=== PATIENT | female | born 1965 | race Two or more races ===

== ENCOUNTER 2024-03-05 12:02 | Emergency (ER) | payer BC, SELFPAY ==
[2024-03-05 12:04] VITALS: BMI 25.2
[2024-03-05 12:24] VITALS: BP 128/78; PULSE 73; RESP 20; TEMP 36.8; O2SAT 99; BMI 25.4
--- NOTE | 2024-03-05 12:35 | XR_ITS ---
Examination: PA lateral chest 2 views Technique: Upright PA lateral chest 2 views Exam date and time: March 05, 2024 12:56 PM Comparison December 25, 2022 Indications: Upper back and chest pain with coughing beginning 2 days ago. Findings: Normal heart size Moderate hyperexpansion Mild accentuation basilar bronchovascular markings No lobar pneumonia No pulmonary edema Impression: COPD with moderate hyperexpansion Mild bibasilar bronchitis pattern
--- NOTE | 2024-03-05 12:35 | XR_ITS ---
Examination: CT brain head without contrast. 2-D sagittal coronal reconstructions Date and time of exam:March 05, 2024 1459 hrs. Indications: Dizziness beginning one week ago CTDI: vol (mGy):42.7 DLP: (mGycm):843 Technique: Multiple CT axial sections of the brain have been obtained, 5 mm slice thickness. Contrast has not been administered. 2-D sagittal, coronal reconstructions have been obtained Low dose protocols were performed. One or more of the following dose reduction techniques were used; automated exposure control, adjustment of the mA and/or KV according to patient size, use of iterative reconstruction technique. Findings: No significant ventricular enlargement. Intra-axial or extra-axial hemorrhage density is not seen. No mass effect or midline shift Basal cisterns are not remarkable. Fourth ventricle is midline. Cranial vault intact. Impression: Negative for acute hemorrhage, mass effect or midline shift Advise clinical correlation and follow-up accordingly
--- NOTE | 2024-03-05 12:35 | EKG_ITS ---
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
--- NOTE | 2024-03-05 12:35 | PD.EDRME ---
Rapid Medical Screening Exam RME Arrival date/time: 03/05/24 12:02 58-year-old female presents emergency department today significant sick for approximately 2 weeks patient reports that she had cough, congestion and shortness of breath patient also reports he developed a headache patient has taken a full course of antibiotics and is now on taking her second antibiotic Chief Complaint: Flu Like Symptoms Time Seen by Provider: 03/05/24 12:16 Vital signs: Vital Signs Temperature 98.2 F 03/05/24 12:24 Pulse Rate 73 03/05/24 12:24 Respiratory Rate 20 03/05/24 12:24 Blood Pressure 128/78 03/05/24 12:24 Pulse Oximetry (%) 99 03/05/24 12:24 Oxygen Delivery Method Room Air 03/05/24 12:24
[2024-03-05 13:17] LABS: Collection Type, Urine Clean Catch; Squamous Epithelial Cell,Urine 0 /hpf (0-5)
[2024-03-05 13:26] LABS: Basophils # (Auto) 0.1 Thou/mm3 (0.0-0.2); Basophils % (Auto) 1 % (0-2.5); Eosinophils # (Auto) 0.1 Thou/mm3 (0.0-0.5); Eosinophils % (Auto) 2 % (0-10); Hematocrit 44.6 % (36.0-46.0); Hemoglobin 15.2 g/dL (12.0-16.0); Immature Granulocytes % (Auto) 0 % (0-0); Immature Granulocytes Auto 0.01 Thou/mm3 (0.00-0.00); Lymphocytes % (Auto) 28 % (10-50); Mean Corpuscular HGB Conc 34.1 g/dl (31.0-37.0); Mean Corpuscular Hemoglobin 30.7 pg (25.0-35.0); Mean Corpuscular Volume 90 fL (80-100); Monocytes # (Auto) 0.6 Thou/mm3 (0.0-0.8); Monocytes % (Auto) 8 % (0-12); Neutrophils # (Auto) 4.5 Thou/mm3 (1.8-7.7); Neutrophils % (Auto) 62 % (37-80); Nucleated Red Blood Cell % 0 /100 WBC (0); Platelet Count 234 Thou/mm3 (140-440); RDW Standard Deviation 38.1 fL (36.4-46.3); Red Blood Count 4.95 Miln/mm3 (4.00-5.20); White Blood Count 7.3 Thou/mm3 (3.6-11.0)
--- NOTE | 2024-03-05 13:28 | PD.EDSOB ---
ED SOB =RME/HPI General Chief Complaint: Flu Like Symptoms Stated Complaint: UPPER BACK PAIN /COUGH X 2 DAYS Time Seen by Provider: 03/05/24 12:16 Arrival date/time: 03/05/24 12:02 RME / HPI RME / HPI Narrative: 03/05/24 12:02 58-year-old female presents emergency department today significant sick for approximately 2 weeks patient reports that she had cough, congestion and shortness of breath patient also reports he developed a headache patient has taken a full course of antibiotics and is now on taking her second antibiotic This section includes all my notes and documentations, including HPI, PE, and ED course. Asa Chacon MD HPI: 58-year-old female here to be evaluated with multiple concerns. A couple weeks ago, she was diagnosed and treated for influenza. She still reports subjective fever and cough, especially in the past few days. With headache and dizziness. And on and off and occasional different symptoms which can include pounding and racing heart, sweating, chills, shaking, trouble breathing, chest pain, stomach pain, nausea, numbness and tingling in the hands and feet and face, confusion, hot flashes, and feeling faint. No other complaints. ROS: All negative except as documented in HPI. Physical Exam: General: Alert and oriented. Hacking cough noted. Appears anxious. Eyes: Conjunctivae and lids clear. EOMI. PERRL. ENT: No nasal congestion. Pharynx normal. Tympanic membrane normal bilaterally. Neck: Supple. No carotid bruit. No JVD. Heart: RRR. Lungs: No respiratory distress. Good air movement with bilateral rales. Abdomen: Soft and nontender. Back: No CVA tenderness. Legs: No clubbing, cyanosis, edema. Skin: Warm and dry. Neuro: Alert and oriented X 3. Cranial Nerves II-XII grossly intact. No peripheral motor deficits. I reviewed all diagnostic test results. My interpretation of the EKG is sinus rhythm with no acute ST?T changes. My interpretation of the chest x-ray is infiltrates. My review of the head CT report is no acute findings. Blood tests and urine tests unremarkable. COVID/influenza negative. At this point, diagnoses include pneumonia and anxiety. Treatment here included Zithromax and Xanax and DuoNeb. Significant improvement noted. Recommended a trial of outpatient treatment. Based on my best medical judgment, made decision no further evaluation or treatment indicated at this time. Patient understands and agrees to the discharge instructions customized and printed, see below. Discharge instructions from Dr. Chacon: 1. After extensive evaluation, there is no life-threatening condition.? Such as stroke or brain tumor or heart attack or pneumothorax (collapsed lung). 2. You have pneumonia. Take Zithromax to kill the germs causing the pneumonia. And Xopenex inhaler as needed for cough or shortness of breath, this won't speed your heart. 3. Your symptoms may also be due to underlying stress or anxiety or nerves.? This is fairly common. Take Xanax as needed.? Whether this helps or not will be valuable information to your private doctors. 4. See a private doctor on 03/07/2024 for recheck and further care. Ask for help until you are completely better. To make sure there is no serious underlying heart condition, ask to help you get more tests for your heart that cannot be done here in the ER.? Such as Holter Monitor (cardiac monitoring at home from a day to even a month), heart stress test (on treadmill or with medication), echocardiogram (imaging of your heart structures), heart catherization (checking for blockages in your heart arteries), and a referral to see a Blue Prints Trimmer. 5. Seek immediate medical care with worsening or with any concerns. Asa Chacon MD Related Data Home Medications ?Medication ?Instructions ?Recorded ?Confirmed lorazepam 0.5 mg tablet 0.25 mg PO BID PRN Anxiety 08/16/20 08/07/23 Previous Rx's ?Medication ?Instructions ?Recorded alprazolam 0.5 mg tablet (Xanax) 0.5 mg PO BID PRN anxiety #10 tabs 03/05/24 azithromycin 500 mg tablet 500 mg PO QDAY 3 days #3 tabs 03/05/24 (Zithromax TRI-DWIGHT) levalbuterol tartrate 45 2 inh inhalation Q6H PRN shortness 03/05/24 mcg/actuation aerosol inhaler of breath or wheezing #15 grams (Xopenex HFA) Allergies Allergy/AdvReac Type Severity Reaction Status Date / Time prednisone Allergy Severe Rash Verified 03/05/24 12:07 Course Quality Measures none Orders Category Date Time Status Bedside COVID-19 Antigen Test NOW Care 03/05/24 12:35 Active Bedside Influenza A&B Antigen Test NOW Care 03/05/24 12:35 Completed EKG (ED ONLY) *Do not use* NOW Care 03/05/24 12:[address] head/brain wo con Stat Exams 03/05/24 12:35 Completed EKG (ED Only) Stat Exams 03/05/24 12:35 Draft XR chest 2V Stat Exams 03/05/24 12:35 Completed B-Type Natriuretic Peptide Stat Lab 03/05/24 13:03 Completed CBC Stat Lab 03/05/24 13:03 Completed Comprehensive Metabolic Panel Stat Lab 03/05/24 13:03 Completed Magnesium Stat Lab 03/05/24 13:03 Completed Partial Thromboplastin Time Stat Lab 03/05/24 13:03 Completed Prothrombin Time with INR Stat Lab 03/05/24 13:03 Completed Troponin I Stat Lab 03/05/24 13:03 Completed Urinalysis Stat Lab 03/05/24 13:09 Completed ALPRazoLAM [Xanax] Med 03/05/24 13:38 Discontinued 0.5 mg PO X1 ONE Albuterol/Ipratr Rt Myra [Duoneb Rt Myra] Med 03/05/24 13:29 Discontinued 3 ml INH X1 ONE Azithromycin Po [Zithromax PO] Med 03/05/24 13:29 Discontinued 500 mg PO X1 ONE Vital Signs Vital signs: Vital Signs Temperature 98.2 F 03/05/24 12:24 Pulse Rate 73 03/05/24 12:24 Respiratory Rate 20 03/05/24 12:24 Blood Pressure 128/78 03/05/24 12:24 Pulse Oximetry (%) 99 03/05/24 12:24 Oxygen Delivery Method Room Air 03/05/24 12:24 Shortness of Breath / Dyspnea Patient data External records reviewed:: [facility] previous records Clinical information provided by:: patient Social determinants that could affect healthcare access:: none Patient has the following chronic illnesses:: Asthma How is presenting disease/condition affected by chronic disease/condition?: exacerbated by Evaluation data The following diagnostics were reviewed and interpreted by me:: lab results, radiology exam(s) and EKG tracing(s) (My interpretation of the EKG is: Sinus rhythm (83 bpm) with nonspecific ST-T changes. Asa Chacon MD) Lab and/or radiology exams considered but not ordered:: None Interpretation Summary: Chest x-ray showing pneumonia, other diagnostic tests unremarkable Medications / Prescriptions Medications or Prescriptions considered but not ordered:: None Medication administrations:: Medication Administration History Discontinued Medications Albuterol/Ipratropium (Albuterol/Ipratropium (Duoneb) Rt Myra 3 Ml Nebu) 3 ml INH X1 ONE Stop: 03/05/24 13:30 Last Admin: 03/05/24 14:20 Dose: 3 ml Documented By: [facility] Alprazolam (Alprazolam 0.25 Mg Tablet) 0.5 mg PO X1 ONE Stop: 03/05/24 13:39 Last Admin: 03/05/24 13:42 Dose: 0.5 mg Documented By: Azithromycin (Azithromycin 250 Mg Tablet) 500 mg PO X1 ONE Stop: 03/05/24 13:30 Last Admin: 03/05/24 13:42 Dose: 500 mg Documented By: Zithromax and Xanax and DuoNeb Consultations Consultation(s) initiated? (list below): No Diagnosis Shortness of Breath Differential Diagnosis: acute exacerbation of chronic obstructive airways disease, congestive heart failure, community acquired pneumonia and asthma with exacerbation Most likely diagnosis given after review of the tests above:: Pneumonia and anxiety Admission Indicated Admission indicated?: not indicated Explain why admission is indicated or not indicated:: Admission criteria not met Admission Request Was there a request for admission?: No Disposition Plan Disposition Plan: Discharge Discharge Attestation Discharge Attestation: The patient and all family members were given an opportunity to ask questions and understood the discharge instructions. Discharge instructions specifically effects, indications for sooner follow up or return to the emergency department, and the expected course of current diagnosis. Patient condition: Stable Discharge Plan Plan Patient Disposition: HOME (Self Care) Prescriptions/Referrals Prescriptions/Med Rec: New alprazolam [Xanax] 0.5 mg tablet 0.5 mg PO BID PRN (Reason: anxiety) Qty: 10 0RF azithromycin [Zithromax TRI-DWIGHT] 500 mg tablet 500 mg PO QDAY 3 Days Qty: 3 0RF levalbuterol tartrate [Xopenex HFA] 45 mcg/actuation HFA aerosol inhaler 2 inh inhalation Q6H PRN (Reason: shortness of breath or wheezing) Qty: 15 0RF No Action lorazepam 0.5 mg Tablet 0.25 mg PO BID PRN (Reason: Anxiety) Hold Instructions: Resume on 08/08/23. Referrals: Lobo (PCP)Francis MD [Primary Care Provider] - In 1 week Problem List Clinical Impression: Pneumonia Patient/Caregiver Discharge Instructions Discharge Activity: activity as tolerated Education Materials: ED Pneumonia (Adult) Additional Instructions: Discharge instructions from Dr. Chacon: 1. After extensive evaluation, there is no life-threatening condition.? Such as stroke or brain tumor or heart attack or pneumothorax (collapsed lung). 2. You have pneumonia. Take Zithromax to kill the germs causing the pneumonia. And Xopenex inhaler as needed for cough or shortness of breath, this won't speed your heart. 3. Your symptoms may also be due to underlying stress or anxiety or nerves.? This is fairly common. Take Xanax as needed.? Whether this helps or not will be valuable information to your private doctors. 4. See a private doctor on 03/07/2024 for recheck and further care. Ask for help until you are completely better. To make sure there is no serious underlying heart condition, ask to help you get more tests for your heart that cannot be done here in the ER.? Such as Holter Monitor (cardiac monitoring at home from a day to even a month), heart stress test (on treadmill or with medication), echocardiogram (imaging of your heart structures), heart catherization (checking for blockages in your heart arteries), and a referral to see a Blue Prints Trimmer. 5. Seek immediate medical care with worsening or with any concerns. Print Language: French Stand Alone Forms: [facility] Award Info., Patient Portal Info Letter
[2024-03-05 13:36] LABS: Bilirubin,Urine Negative (Negative); Blood,Urine Negative (Negative); Clarity,Urine Clear (Clear/Hazy); Color,Urine Colorless (Lt Yel-Yel); Glucose, Urine Negative (Negative); Ketones,Urine Negative (Negative); Leukocyte Esterase,Urine Negative (Negative); Nitrite,Urine Negative (Negative); PH,Urine 6.5 (5.0-7.0); Protein,Urine Negative (Neg - Trace); RBC,Urine 2 /hpf (0-3); Specific Gravity,Urine 1.008 (1.001-1.035); Urobilinogen,Urine Negative mg/dL (0.0-1.0); WBC,Urine 1 /hpf (0-5)
[2024-03-05] MEDS: AZITHROMYCIN 250 MG TABLET 500 MG PO (13:42)
[2024-03-05] MEDS: ALPRazoLAM 0.25 MG TABLET 0.5 MG PO (13:42)
[2024-03-05 13:45] LABS: Partial Thromboplastin Time 25.1 Seconds (22.0-36.0); Prothrombin Time 10.7 Seconds (9.0-12.2)
[2024-03-05 13:51] LABS: Alanine Aminotransferase 21 U/L (10-49); Albumin, Serum 4.8 gm/dL (3.5-5.0); Albumin/Globulin Ratio 1.5 (1.2-2.2); Alkaline Phosphatase 83 U/L (46-116); Anion Gap 6 (7-16); Aspartate Amino Transferase 24 U/L (0-34); B-Type Natriuretic Peptide 24 pg/mL (0-100); BUN/Creatinine Ratio 19 Ratio (12-20); Bilirubin,Total 0.5 mg/dL (0.3-1.2); Blood Urea Nitrogen 17 mg/dL (9-23); Carbon Dioxide 28.8 mMol/L (20.0-31.0); Chloride 105 mMol/L (98-107); Creatinine (Component) 0.9 mg/dL (0.6-1.3); Estimated Creatinine Clearance 53.2 mL/min (>60); Globulin 3.1 gm/dL (2.3-3.5); Glucose 102 mg/dL (74-106); Magnesium 2.2 mg/dL (1.6-2.6); Osmolality,Calculated 280 (275-295); Potassium 4.8 mMol/L (3.4-5.1); Sodium 140 mMol/L (136-145); Total Protein 7.9 gm/dL (5.7-8.2); Troponin I < 0.020 ng/mL (0.0-0.045); eGFR > 60 See Note
[2024-03-05] MEDS: ALBUTEROL/IPRATROPIUM (Duoneb) RT SOL 3 ML NEBU INH (14:20)
[2024-03-05 14:23] VITALS: PULSE 71; RESP 18; O2SAT 100
[2024-03-05 16:01] VITALS: BP 106/74; PULSE 79; RESP 16; TEMP 36.5; O2SAT 99
== END 2024-03-05 16:28 | disposition home or self-care (01) ==
PROVIDERS: Nurse Practitioner Primary Care; Emergency Provider Emergency Medicine; PCP Family Medicine
DX: J18.9 Pneumonia, unspecified organism (principal); R51.9 Headache, unspecified
CPT/HCPCS: 36415; 70450; 71046; 80053; 81001; 83735; 83880; 84484; 85025; 85610; 85730; 87400; 87811; 93005; 94640; 99284; A9270

== ENCOUNTER → 2024-03-16 | Outpatient (CLI) | payer BC, SELFPAY ==
[2024-03-16 08:11] LABS: Collection Type, Urine Clean Catch; Squamous Epithelial Cell,Urine 0 /hpf (0-5)
[2024-03-16 08:58] LABS: Basophils % (Auto) 0 % (0-2.5); Eosinophils # (Auto) 0.1 Thou/mm3 (0.0-0.5); Eosinophils % (Auto) 2 % (0-10); Hemoglobin 14.5 g/dL (12.0-16.0); Immature Granulocytes % (Auto) 0 % (0-0); Immature Granulocytes Auto 0.01 Thou/mm3 (0.00-0.00); Lymphocytes # (Auto) 1.8 Thou/mm3 (1.0-4.8); Lymphocytes % (Auto) 40 % (10-50); Mean Corpuscular HGB Conc 34.5 g/dl (31.0-37.0); Mean Corpuscular Hemoglobin 30.7 pg (25.0-35.0); Mean Corpuscular Volume 89 fL (80-100); Monocytes # (Auto) 0.5 Thou/mm3 (0.0-0.8); Monocytes % (Auto) 10 % (0-12); Neutrophils # (Auto) 2.2 Thou/mm3 (1.8-7.7); Neutrophils % (Auto) 47 % (37-80); Nucleated Red Blood Cell % 0 /100 WBC (0); Platelet Count 204 Thou/mm3 (140-440); RDW Standard Deviation 38.2 fL (36.4-46.3); Red Blood Count 4.73 Miln/mm3 (4.00-5.20); White Blood Count 4.6 Thou/mm3 (3.6-11.0)
[2024-03-16 09:09] LABS: Bilirubin,Urine Negative (Negative); Blood,Urine Negative (Negative); Clarity,Urine Clear (Clear/Hazy); Color,Urine Colorless (Lt Yel-Yel); Culture Indicated,Urine Not Indicated; Glucose, Urine Negative (Negative); Ketones,Urine Negative (Negative); Leukocyte Esterase,Urine Negative (Negative); Nitrite,Urine Negative (Negative); PH,Urine 6.5 (5.0-7.0); Protein,Urine Negative (Neg - Trace); RBC,Urine < 1 /hpf (0-3); Specific Gravity,Urine 1.011 (1.001-1.035); Urobilinogen,Urine Negative mg/dL (0.0-1.0); WBC,Urine < 1 /hpf (0-5)
[2024-03-16 09:09] LABS: Alanine Aminotransferase 17 U/L (10-49); Albumin, Serum 4.9 gm/dL (3.5-5.0); Albumin/Globulin Ratio 1.6 (1.2-2.2); Alkaline Phosphatase 85 U/L (46-116); Anion Gap 6 (7-16); Aspartate Amino Transferase 21 U/L (0-34); BUN/Creatinine Ratio 21 Ratio (12-20); Bilirubin,Total 0.6 mg/dL (0.3-1.2); Blood Urea Nitrogen 19 mg/dL (9-23); Calcium 10.2 mg/dL (8.3-10.6); Calcium (Corrected) 10.2 mg/dL (8.5-10.1); Carbon Dioxide 28.8 mMol/L (20.0-31.0); Chloride 104 mMol/L (98-107); Creatinine (Component) 0.9 mg/dL (0.6-1.3); Globulin 3.1 gm/dL (2.3-3.5); Glucose 84 mg/dL (74-106); Osmolality,Calculated 278 (275-295); Sodium 139 mMol/L (136-145); eGFR > 60 See Note
== END | disposition home or self-care (01) ==
PROVIDERS: PCP Nurse Practitioner Family; Referring Provider Nurse Practitioner Family; Visit Provider Nurse Practitioner Family
DX: Z00.00 Encounter for general adult medical examination without abnormal findings (principal); Z13.0 Encounter for screening for diseases of the blood and blood-forming organs and certain disorders involving the immune mechanism
CPT/HCPCS: 36415; 80053; 81001; 85025; 87040

== ENCOUNTER → 2024-08-02 | Outpatient (CLI) | payer BC, SELFPAY ==
[2024-08-02 09:19] LABS: Basophils % (Auto) 1 % (0-2.5); Eosinophils # (Auto) 0.1 Thou/mm3 (0.0-0.5); Eosinophils % (Auto) 2 % (0-10); Hematocrit 39.1 % (36.0-46.0); Hemoglobin 13.9 g/dL (12.0-16.0); Immature Granulocytes % (Auto) 0 % (0-0); Immature Granulocytes Auto 0.01 Thou/mm3 (0.00-0.00); Lymphocytes # (Auto) 1.9 Thou/mm3 (1.0-4.8); Lymphocytes % (Auto) 37 % (10-50); Mean Corpuscular HGB Conc 35.5 g/dl (31.0-37.0); Mean Corpuscular Hemoglobin 31.2 pg (25.0-35.0); Mean Corpuscular Volume 88 fL (80-100); Monocytes # (Auto) 0.6 Thou/mm3 (0.0-0.8); Monocytes % (Auto) 12 % (0-12); Neutrophils # (Auto) 2.5 Thou/mm3 (1.8-7.7); Neutrophils % (Auto) 49 % (37-80); Nucleated Red Blood Cell % 0 /100 WBC (0); Platelet Count 201 Thou/mm3 (140-440); RDW Standard Deviation 37.5 fL (36.4-46.3); Red Blood Count 4.46 Miln/mm3 (4.00-5.20); White Blood Count 5.2 Thou/mm3 (3.6-11.0)
[2024-08-09 07:07] LABS: Helicobacter pylori Ag, Stool* NOT DETECTED (NOT DETECTED)
== END | disposition home or self-care (01) ==
LOC: COPL 08:28
PROVIDERS: PCP Nurse Practitioner Family; Referring Provider Nurse Practitioner Family; Visit Provider Nurse Practitioner Family
DX: Z00.00 Encounter for general adult medical examination without abnormal findings (principal); R10.9 Unspecified abdominal pain
CPT/HCPCS: 36415; 85025; 87338

== ENCOUNTER → 2024-09-07 | Outpatient (CLI) | payer BC, SELFPAY ==
--- NOTE | 2024-09-07 13:30 | XR_ITS ---
Examination: Screening digital mammography, bilateral Computer aided detection 3-D breast Tomosynthesis, bilateral Date and time of exam: September 07, 2024 1300 hours Compared to mammograms dating to June 09, 2018 Indication: Screening Technique: Nonmagnified MLO, CC views of the breasts to been obtained, reconstructed from 3-D Tomosynthesis images. R2 computer aided detection program utilized for evaluation of suspicious masses and/or abnormal calcifications. 3-D Tomosynthesis images obtained. Findings: Scattered areas of fibroglandular density. Benign calcifications. No interval suspicious masses Impression: BI-RADS category II: Benign Findings. Recommend 1 year follow-up mammogram.
== END | disposition home or self-care (01) ==
PROVIDERS: PCP Nurse Practitioner Family; Referring Provider Nurse Practitioner Family; Visit Provider Nurse Practitioner Family
DX: Z12.31 Encounter for screening mammogram for malignant neoplasm of breast (principal); R92.323 Mammographic fibroglandular density, bilateral breasts; R92.1 Mammographic calcification found on diagnostic imaging of breast
CPT/HCPCS: 77063; 77067

== ENCOUNTER 2024-12-26 09:37 | Emergency (ER) | payer BC, SELFPAY ==
[2024-12-26 09:46] VITALS: BP 138/83; PULSE 69; RESP 16; TEMP 36.6; O2SAT 100; BMI 25.2
--- NOTE | 2024-12-26 09:54 | EKG_ITS ---
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
--- NOTE | 2024-12-26 09:54 | XR_ITS ---
Examination: CT brain head without contrast. 2-D sagittal coronal reconstructions Date and time of exam: 12/26/2024, 10:13 a.m. CTDI: vol (mGy): 43.3 DLP: (mGycm): 832 INDICATION: Generalized headache with dizziness today Technique: Multiple CT axial sections of the brain have been obtained, 5 mm slice thickness. Contrast has not been administered. 2-D sagittal, coronal reconstructions have been obtained Low dose protocols were performed. One or more of the following dose reduction techniques were used; automated exposure control, adjustment of the mA and/or KV according to patient size, use of iterative reconstruction technique. Findings: No abnormal ventricular enlargement. Intra-axial or extra-axial hemorrhage density is not seen. No mass effect or midline shift. Partially empty sella. Borderline slightly low-lying cerebellar tonsils with otherwise no Chiari I malformation. Otherwise, basal cisterns are unremarkable. Fourth ventricle is midline. Cranial vault intact. Clear paranasal sinuses as visualized. Impression: Negative for acute hemorrhage, mass effect or midline shift. No significant interval change since the comparison study.
--- NOTE | 2024-12-26 09:55 | PD.EDRME ---
Rapid Medical Screening Exam [facility] Arrival date/time: 12/26/24 09:37 59-year-old female with no known medical history presents to the emergency room with a chief complaint of a 10 out of 10 headache, dizziness, lightheadedness x 5 days patient states she has been seen by her primary care provider who has treated her for sinus infection and ear infections and her symptoms have not gotten any better I have greeted and performed a focused initial assessment of this patient. A comprehensive ED assessment and evaluation of the patient, analysis of all test results, and completion of the medical decision making process will be conducted by additional ED providers. Chief Complaint: Dizziness Vital signs: Vital Signs Temperature 97.8 F 12/26/24 09:46 Pulse Rate 69 12/26/24 09:46 Respiratory Rate 16 12/26/24 09:46 Blood Pressure 138/83 H 12/26/24 09:46 Pulse Oximetry (%) 100 12/26/24 09:46 Oxygen Delivery Method Room Air 12/26/24 09:46 Vital signs reviewed by provider: Yes Exam: Patient is a GCS 15 alert and oriented x 3 pupils are PERRLA EOMs are intact Clear bilateral lung Clinical Impression: Headache, migraines,
[2024-12-26 10:25] LABS: Basophils # (Auto) 0.0 Thou/mm3 (0.0-0.2); Basophils % (Auto) 1 % (0-2.5); Eosinophils # (Auto) 0.0 Thou/mm3 (0.0-0.5); Eosinophils % (Auto) 1 % (0-10); Hematocrit 42.4 % (36.0-46.0); Hemoglobin 14.5 g/dL (12.0-16.0); Immature Granulocytes Auto 0.01 Thou/mm3 (0.00-0.00); Lymphocytes # (Auto) 1.9 Thou/mm3 (1.0-4.8); Lymphocytes % (Auto) 37 % (10-50); Mean Corpuscular HGB Conc 34.2 g/dl (31.0-37.0); Mean Corpuscular Hemoglobin 30.9 pg (25.0-35.0); Mean Corpuscular Volume 90 fL (80-100); Monocytes # (Auto) 0.4 Thou/mm3 (0.0-0.8); Monocytes % (Auto) 7 % (0-12); Neutrophils # (Auto) 2.8 Thou/mm3 (1.8-7.7); Neutrophils % (Auto) 54 % (37-80); Nucleated Red Blood Cell # 0.00 Thou/mm3 (0.00-0.00); Nucleated Red Blood Cell % 0 /100 WBC (0); Platelet Count 208 Thou/mm3 (140-440); RDW Standard Deviation 38.6 fL (36.4-46.3); Red Blood Count 4.70 Miln/mm3 (4.00-5.20); White Blood Count 5.2 Thou/mm3 (3.6-11.0)
[2024-12-26 10:35] LABS: INR 0.9 (0.9-1.3); Partial Thromboplastin Time 26.7 Seconds (22.0-36.0); Prothrombin Time 10.0 Seconds (9.0-12.2)
[2024-12-26 10:40] LABS: B-Type Natriuretic Peptide 29 pg/mL (0-100)
[2024-12-26 10:42] LABS: Alanine Aminotransferase 20 U/L (10-49); Albumin, Serum 4.7 gm/dL (3.5-5.0); Albumin/Globulin Ratio 1.8 (1.2-2.2); Alkaline Phosphatase 85 U/L (46-116); Anion Gap 9 (7-16); Aspartate Amino Transferase 17 U/L (0-34); BUN/Creatinine Ratio 13 Ratio (12-20); Bilirubin,Total 0.5 mg/dL (0.3-1.2); Blood Urea Nitrogen 13 mg/dL (9-23); Calcium 9.8 mg/dL (8.3-10.6); Calcium (Corrected) 9.8 mg/dL (8.5-10.1); Carbon Dioxide 25.4 mMol/L (20.0-31.0); Chloride 107 mMol/L (98-107); Creatinine (Component) 1.0 mg/dL (0.6-1.3); Estimated Creatinine Clearance 47.0 mL/min (>60); Globulin 2.6 gm/dL (2.3-3.5); Glucose 119 mg/dL (74-106); Magnesium 2.0 mg/dL (1.6-2.6); Osmolality,Calculated 282 (275-295); Potassium 4.8 mMol/L (3.4-5.1); Sodium 141 mMol/L (136-145); Total Protein 7.3 gm/dL (5.7-8.2); Troponin I < 0.002 ng/mL (0.0-0.045); eGFR > 60 See Note
--- NOTE | 2024-12-26 10:48 | PD.EDDIZZY ---
ED Dizzyness RME/HPI General Chief Complaint: Dizziness Stated Complaint: PRESSURE/TIGHTNESS IN HEAD; DIZZY X 2 WKS Time Seen by Provider: 12/26/24 10:28 Arrival date/time: 12/26/24 09:37 RME / HPI RME / HPI Narrative: 12/26/24 09:37 59-year-old female with no known medical history presents to the emergency room with a chief complaint of a 10 out of 10 headache, dizziness, lightheadedness x 5 days patient states she has been seen by her primary care provider who has treated her for sinus infection and ear infections and her symptoms have not gotten any better I have greeted and performed a focused initial assessment of this patient. A comprehensive ED assessment and evaluation of the patient, analysis of all test results, and completion of the medical decision making process will be conducted by additional ED providers. DR. ESDRAS PINK ED EVALUATION 59 year old female with history of anxiety presents to the ED for evaluation of dizziness and a throbbing pressure to the back of head beginning intermittently 2 weeks ago. Patient states when her symptoms initially began she also had sinus pressure and right ear discomfort. Consulted with her PCP who diagnosed her with a sinus infection and was started on antibiotics. Reportedly completed her antibiotics and the ear discomfort improved though head pressure and dizziness persists. Accompanied by nausea and decreased appetite due to the nausea. States her symptoms are mildly improved with lying down. Additionally reports taking 0.25mg of Ativan, Meclizine, and Claritin daily in the last 2 weeks with no change in symptoms. No history of migraine headaches. Denies fevers, chills, sweats. Denies any changes in vision. Denies vomiting, diarrhea, abdominal pain. Denies dysuria, urinary frequency and urgency. Exam: Patient is a GCS 15 alert and oriented x 3 pupils are PERRLA EOMs are intact Clear bilateral lung Impression: Headache, migraines, Related Data Home Medications ?Medication ?Instructions ?Recorded ?Confirmed lorazepam 0.5 mg tablet 0.25 mg PO BID PRN Anxiety 08/16/20 08/07/23 Held on 08/07/23. Instructions: Resume on 08/08/23. Previous Rx's ?Medication ?Instructions ?Recorded alprazolam 0.5 mg tablet (Xanax) 0.5 mg PO BID PRN anxiety #10 tabs 03/05/24 levalbuterol tartrate 45 2 inh inhalation Q6H PRN shortness 03/05/24 mcg/actuation aerosol inhaler of breath or wheezing #15 grams (Xopenex HFA) Allergies Allergy/AdvReac Type Severity Reaction Status Date / Time prednisone Allergy Severe Rash Verified 12/26/24 09:41 Review of Systems Review of Systems Systems Reviewed: All systems reviewed, normal except as documented Past Medical History Past Medical History RESPIRATORY: Positive Asthma REPRODUCTIVE: Positive Previous Pregnancies PSYCHO/SOCIAL: Positive Anxiety OTHER HISTORY: Positive Shingles and Chicken Pox Family History FAMILY HISTORY: Positive Family Psychiatric Problems, Family Cardiac Disorders and Family Surgery Surgical History SURGICAL: Positive of Shoulder Sx (R SHOULDER); Negative Cardiac Surgery or Pacemaker Social History SMOKING STATUS: Never smoker ED Exam Narrative Physical exam: GENERAL APPEARANCE: alert and oriented x 4, well-developed, well-nourished, grimacing HEENT: Normocephalic, atraumatic; pupils equal, round, reactive to light; no nystagmus; EOMI; bilateral TMs appear normal, no bulging; mucous membranes pink, moist; oropharynx clear NECK: Supple LUNGS: CTABL; no wheezes, no rales, no rhonchi HEART: Regular rate, regular rhythm; normal S1, S2; no murmurs ABDOMEN: non distended; normal BS; soft, no tenderness, no guarding, no rebound; no masses, no organomegaly, no hernia EXTREMITIES: atraumatic; no edema NEUROLOGIC: awake; alert and oriented x4; cranial nerves II-XII grossly intact; no nystagmus; no focal sensory or motor deficits PSYCHIATRIC: appropriate mood and affect SKIN: warm, dry, normal color; no rashes Course Course Course Narrative: 1400: Patient was able to ambulate without difficulty. Reports her symptoms have improved. We reviewed all the results, analysis, and treatment plans. Patient is amenable to discharge. Strict return precautions were outlined. Quality Measures none Orders Category Date Time Status EKG (ED ONLY) *Do not use* NOW Care 12/26/24 09:[address] head/brain wo con Stat Exams 12/26/24 09:54 Completed EKG (ED Only) Stat Exams 12/26/24 09:54 Draft B-Type Natriuretic Peptide Stat Lab 12/26/24 10:00 Completed CBC Stat Lab 12/26/24 10:00 Completed Comprehensive Metabolic Panel Stat Lab 12/26/24 10:00 Completed Magnesium Stat Lab 12/26/24 10:00 Completed Partial Thromboplastin Time Stat Lab 12/26/24 10:00 Completed Prothrombin Time with INR Stat Lab 12/26/24 10:00 Completed Troponin I Stat Lab 12/26/24 10:00 Completed Urinalysis, C/S if Indicated Stat Lab 12/26/24 10:53 Completed HYDROcodone*/APAP 5/325 [[place] 5/325] Med 12/26/24 11:45 Discontinued 1 tab PO X1 ONE Indomethacin [Indocin] Med 12/26/24 11:44 Discontinued 25 mg PO X1 ONE Meclizine HCl [Antivert] Med 12/26/24 11:46 Discontinued 25 mg PO X1 ONE Metoclopramide [Reglan] Med 12/26/24 11:47 Discontinued 10 mg PO X1 ONE Vital Signs Vital signs: Vital Signs Temperature 97.8 F 12/26/24 09:46 Pulse Rate 69 12/26/24 09:46 Respiratory Rate 16 12/26/24 09:46 Blood Pressure 138/83 H 12/26/24 09:46 Pulse Oximetry (%) 100 12/26/24 09:46 Oxygen Delivery Method Room Air 12/26/24 09:46 Pulse ox is 100% on room air which is adequate. Dizziness MDM Narrative MDM Narrative:: Taniya Velazquez am scribing for and in the presence of Dr. Villasenor. Patient data External records reviewed:: [facility] previous records Clinical information provided by:: patient Social determinants that could affect healthcare access:: mental health Patient has the following chronic illnesses:: Anxiety How is presenting disease/condition affected by chronic disease/condition?: uneffected by Evaluation data The following diagnostics were reviewed and interpreted by me:: lab results, radiology exam(s) and EKG tracing(s) (EKG @ 10:54 AM. Normal sinus rhythm, rate 65, no STEMI. ) Lab and/or radiology exams considered but not ordered:: None Interpretation Summary: Ordering Physician: Evgeny Lorenz Date of Service: 12/26/24 Procedure(s): CT head/brain wo con Accession Number(s): [id number] cc: Evgeny Lorenz; Jason Lackey DO~ Examination: CT brain head without contrast. 2-D sagittal coronal reconstructions Date and time of exam: 12/26/2024, 10:13 a.m. CTDI: vol (mGy): 43.3 DLP: (mGycm): 832 INDICATION: Generalized headache with dizziness today Technique: Multiple CT axial sections of the brain have been obtained, 5 mm slice thickness. Contrast has not been administered. 2-D sagittal, coronal reconstructions have been obtained Low dose protocols were performed. One or more of the following dose reduction techniques were used; automated exposure control, adjustment of the mA and/or KV according to patient size, use of iterative reconstruction technique. Findings: No abnormal ventricular enlargement. Intra-axial or extra-axial hemorrhage density is not seen. No mass effect or midline shift. Partially empty sella. Borderline slightly low-lying cerebellar tonsils with otherwise no Chiari I malformation. Otherwise, basal cisterns are unremarkable. Fourth ventricle is midline. Cranial vault intact. Clear paranasal sinuses as visualized. Impression: Negative for acute hemorrhage, mass effect or midline shift. No significant interval change since the comparison study. Dictated By: Jason Lackey DO Signed By: <Electronically signed by Jason Lackey DO in OV> 12/26/24 1040 Medications / Prescriptions Medications or Prescriptions considered but not ordered:: None Medication administrations:: Medication Administration History Discontinued Medications Hydrocodone Bitart/Acetaminophen (Hydrocodone/[place] 5/325 Tablet) 1 tab PO X1 ONE Stop: 12/26/24 11:46 Last Admin: 12/26/24 12:20 Dose: Not Given Documented By: GM Non-Admin Reason: Patient Refused Comments: PT REPORTS, ZOE MADE ME DIZZY IN THE PAST. Indomethacin (Indomethacin 25 Mg Capsule) 25 mg PO X1 ONE Stop: 12/26/24 11:45 Last Admin: 12/26/24 12:28 Dose: 25 mg Documented By: Meclizine HCl (Meclizine Hcl 25 Mg Tablet) 25 mg PO X1 ONE Stop: 12/26/24 11:47 Last Admin: 12/26/24 12:20 Dose: 25 mg Documented By: Metoclopramide HCl (Metoclopramide Liqd 10 Mg/10 Ml Udc) 10 mg PO X1 ONE Stop: 12/26/24 11:48 Last Admin: 12/26/24 12:20 Dose: 10 mg Documented By: DEEP See above Consultations Consultation(s) initiated? (list below): No Diagnosis Most likely diagnosis given after review of the tests above:: Dizziness Admission Indicated Admission indicated?: not indicated Explain why admission is indicated or not indicated:: With significant improvement and no condition needing emergent intervention, there was no indication for admission. Admission Request Was there a request for admission?: No Disposition Plan Disposition Plan: Discharge Discharge Attestation Discharge Attestation: The patient and all family members were given an opportunity to ask questions and understood the discharge instructions. Discharge instructions specifically effects, indications for sooner follow up or return to the emergency department, and the expected course of current diagnosis. Patient condition: Stable Discharge Plan Plan Patient Disposition: HOME (Self Care) Prescriptions/Referrals Prescriptions/Med Rec: No Action lorazepam 0.5 mg Tablet 0.25 mg PO BID PRN (Reason: Anxiety) alprazolam [Xanax] 0.5 mg tablet 0.5 mg PO BID PRN (Reason: anxiety) Qty: 10 0RF levalbuterol tartrate [Xopenex HFA] 45 mcg/actuation HFA aerosol inhaler 2 inh inhalation Q6H PRN (Reason: shortness of breath or wheezing) Qty: 15 0RF Referrals: CARROLL LORD [Primary Care Provider] - In 1 week Problem List Clinical Impression: Dizziness Patient/Caregiver Discharge Instructions Education Materials: ED Dizziness, Uncertain Cause Print Language: Somali Stand Alone Forms: [place] Award Info., Patient Portal Info Letter
[2024-12-26 10:54] VITALS: BP 115/71; PULSE 58; RESP 17; TEMP 36.9; O2SAT 100
--- NOTE | 2024-12-26 10:59 | PC.NURSE ---
PT COMING FROM ED LOBBY WITH C/O LIGHTHEADEDNESS X2 WEEKS WITH SHARP POSTERIOR HEAD PAIN X2 WEEKS TO WHICH PT STATES, IT COMES AND GOES, SOMETIMES THE PAIN SPREADS TO MY TEMPLES. PT REPORTS HAVING HX OF ANXIETY AND TAKES LORAZEPAM FOR IT ON AVERAGE ABOUT 2X Q WEEK BUT PT STATES, IN THE PAST 2 WEEKS, I'VE BEEN TAKING IT EVERYDAY. PT REPORTS TAKING LORAZEPAM 2.5MG PO TODAY AT 0700. PT DENIES CHEST PAIN AT THIS TIME.
[2024-12-26 11:00] LABS: Collection Type, Urine Clean Catch; RBC,Urine 0 /hpf (0-3); Squamous Epithelial Cell,Urine 0 /hpf (0-5); WBC,Urine 0 /hpf (0-5)
[2024-12-26 11:04] LABS: Bilirubin,Urine Negative (Negative); Blood,Urine Negative (Negative); Clarity,Urine Clear (Clear/Hazy); Color,Urine Colorless (Lt Yel-Yel); Culture Indicated,Urine Not Indicated; Glucose, Urine Negative (Negative); Ketones,Urine Negative (Negative); Leukocyte Esterase,Urine Negative (Negative); Nitrite,Urine Negative (Negative); PH,Urine 6.5 (5.0-7.0); Protein,Urine Negative (Neg - Trace); Specific Gravity,Urine 1.004 (1.001-1.035); Urobilinogen,Urine Negative mg/dL (0.0-1.0)
[2024-12-26] MEDS: MECLIZINE HCL 25 MG TABLET PO (12:20)
[2024-12-26] MEDS: METOCLOPRAMIDE LIQD 10 MG/10 ML UDC PO (12:20)
[2024-12-26] MEDS: INDOMETHACIN 25 MG CAPSULE PO (12:28)
[2024-12-26 12:29] VITALS: BP 103/66; PULSE 68; RESP 16; TEMP 36.8; O2SAT 100
[2024-12-26 14:32] VITALS: BP 109/63; PULSE 66; RESP 14; TEMP 36.8; O2SAT 100
== END 2024-12-26 14:37 | disposition home or self-care (01) ==
PROVIDERS: Nurse Practitioner Family; Emergency Provider Emergency Medicine; PCP Nurse Practitioner Family
DX: R42 Dizziness and giddiness (principal); R51.9 Headache, unspecified
CPT/HCPCS: 36415; 70450; 80053; 81001; 83735; 83880; 84484; 85025; 85610; 85730; 93005; 99283; A9270

== ENCOUNTER → 2024-12-28 | Outpatient (CLI) | payer BC, SELFPAY ==
--- NOTE | 2024-12-28 14:34 | EKG_ITS ---
[facility] Test Date: 2024-12-28 Pat Name: UMANG WEEKS Department: Room: - Gender: Female Nurse Clinical: EDIN : 1965 Requested By: CARROLL LORD Order Number: [id number] Reading MD: CARROLL LORD Measurements Intervals [place] Rate: 68 P: 48 KS: 129 QRS: 75 QRSD: 85 T: 57 QT: 349 QTc: 373 Interpretive Statements SINUS RHYTHM WITH OCCASIONAL SUPRAVENTRICULAR PREMATURE COMPLEXES POSSIBLE LEFT ATRIAL ENLARGEMENT [-0.1mV P WAVE IN V1/V2] Compared to ECG 12/26/2024 10:54:26 No significant changes /store/S0/[id number]/ecg/[id number].pdf
== END | disposition home or self-care (01) ==
PROVIDERS: PCP Nurse Practitioner Family; Referring Provider Nurse Practitioner Family; Visit Provider Nurse Practitioner Family
DX: R07.9 Chest pain, unspecified (principal); R00.2 Palpitations
CPT/HCPCS: 93005

== ENCOUNTER 2025-01-28 20:10 | Emergency (ER) | payer BC, SELFPAY ==
[2025-01-28 20:12] VITALS: BMI 24.8
[2025-01-28 20:16] VITALS: BP 160/84; PULSE 80; RESP 18; TEMP 36.6; O2SAT 99
--- NOTE | 2025-01-28 20:20 | XR_ITS ---
Examination: CT abdomen and pelvis without contrast. Coronal 3-D reconstructions. Sagittal 2-D reconstructions. Date and time of exam: January 28, 2025, 2030 hours INDICATIONS: Flank and right-sided back pain beginning 1 week ago CTDI: vol (mGy): 6.44 DLP: (mGycm): 304 Technique: Axial images of the abdomen have been obtained, 3 mm slice thickness Intravenous contrast material has not been administered. Low dose protocols were performed. One or more of the following dose reduction techniques were used; automated exposure control, adjustment of the mA and/or KV according to patient size, use of iterative reconstruction technique. Findings: No focal liver or splenic lesions No gallstones No pancreatic or adrenal mass No renal or ureteral calculi, no hydronephrosis No pericecal inflammatory change, normal appendix No bowel obstruction No pelvic mass Bladder intact Moderate osteopenia IMPRESSION: No renal or ureteral calculi, no hydronephrosis No CT findings of appendicitis bowel obstruction or diverticulitis
[2025-01-28 20:48] LABS: Collection Type, Urine Clean Catch; Squamous Epithelial Cell,Urine 0 /hpf (0-5)
[2025-01-28 20:51] LABS: Bilirubin,Urine Negative (Negative); Blood,Urine 1+ (Negative); Clarity,Urine Clear (Clear/Hazy); Color,Urine Lt-Yellow (Lt Yel-Yel); Glucose, Urine Negative (Negative); HCG Qualitative,Urine Negative; Ketones,Urine Negative (Negative); Leukocyte Esterase,Urine Negative (Negative); Nitrite,Urine Negative (Negative); PH,Urine 6.5 (5.0-7.0); Protein,Urine Negative (Neg - Trace); RBC,Urine 6 /hpf (0-3); Specific Gravity,Urine 1.016 (1.001-1.035); Urobilinogen,Urine Negative mg/dL (0.0-1.0); WBC,Urine 1 /hpf (0-5)
[2025-01-28 20:59] LABS: Basophils # (Auto) 0.0 Thou/mm3 (0.0-0.2); Basophils % (Auto) 1 % (0-2.5); Eosinophils # (Auto) 0.1 Thou/mm3 (0.0-0.5); Eosinophils % (Auto) 2 % (0-10); Hematocrit 40.8 % (36.0-46.0); Hemoglobin 14.2 g/dL (12.0-16.0); Immature Granulocytes Auto 0.01 Thou/mm3 (0.00-0.00); Lymphocytes # (Auto) 2.7 Thou/mm3 (1.0-4.8); Lymphocytes % (Auto) 48 % (10-50); Mean Corpuscular HGB Conc 34.8 g/dl (31.0-37.0); Mean Corpuscular Hemoglobin 31.8 pg (25.0-35.0); Mean Corpuscular Volume 91 fL (80-100); Monocytes # (Auto) 0.6 Thou/mm3 (0.0-0.8); Monocytes % (Auto) 10 % (0-12); Neutrophils # (Auto) 2.2 Thou/mm3 (1.8-7.7); Neutrophils % (Auto) 39 % (37-80); Nucleated Red Blood Cell # 0.00 Thou/mm3 (0.00-0.00); Nucleated Red Blood Cell % 0 /100 WBC (0); Platelet Count 222 Thou/mm3 (140-440); RDW Standard Deviation 39.5 fL (36.4-46.3); Red Blood Count 4.47 Miln/mm3 (4.00-5.20); White Blood Count 5.7 Thou/mm3 (3.6-11.0)
[2025-01-28 21:22] LABS: Alanine Aminotransferase 14 U/L (10-49); Albumin, Serum 4.9 gm/dL (3.5-5.0); Albumin/Globulin Ratio 1.7 (1.2-2.2); Alkaline Phosphatase 83 U/L (46-116); Anion Gap 7 (7-16); Aspartate Amino Transferase 16 U/L (0-34); BUN/Creatinine Ratio 25 Ratio (12-20); Bilirubin,Total 0.3 mg/dL (0.3-1.2); Blood Urea Nitrogen 20 mg/dL (9-23); Calcium 10.2 mg/dL (8.3-10.6); Calcium (Corrected) 10.2 mg/dL (8.5-10.1); Carbon Dioxide 30.9 mMol/L (20.0-31.0); Chloride 105 mMol/L (98-107); Creatinine (Component) 0.8 mg/dL (0.6-1.3); Estimated Creatinine Clearance 58.4 mL/min (>60); Globulin 2.9 gm/dL (2.3-3.5); Glucose 109 mg/dL (74-106); Lipase 50 U/L (12-53); Osmolality,Calculated 288 (275-295); Potassium 3.8 mMol/L (3.4-5.1); Sodium 143 mMol/L (136-145); Total Protein 7.8 gm/dL (5.7-8.2); eGFR > 60 See Note
--- NOTE | 2025-01-29 03:04 | PD.EDABDPN ---
ED Abdominal Pain RME/HPI General Chief Complaint: Abdominal Pain Stated complaint: LEFT UPPER ABD PAIN RADIATINT TO BACK Time seen by provider: 01/28/25 20:14 Arrival date/time: 01/28/25 20:10 This is a case of 59-year-old female who came in in the emergency room due to left upper abdominal pain radiating to the mid back for 1 week associated with nausea vomiting patient denies any other symptoms denies any constipation diarrhea or blood in stool numbness weakness tingling sensation incontinence to urine or stool due to persistence of the symptoms this patient decided to start consult her in the emergency room Limitations: no limitations Related Data Home Medications ?Medication ?Instructions ?Recorded ?Confirmed lorazepam 0.5 mg tablet 0.25 mg PO BID PRN Anxiety 08/16/20 08/07/23 Held on 08/07/23. Instructions: Resume on 08/08/23. Previous Rx's ?Medication ?Instructions ?Recorded alprazolam 0.5 mg tablet (Xanax) 0.5 mg PO BID PRN anxiety #10 tabs 03/05/24 levalbuterol tartrate 45 2 inh inhalation Q6H PRN shortness 03/05/24 mcg/actuation aerosol inhaler of breath or wheezing #15 grams (Xopenex HFA) baclofen 10 mg tablet 10 mg PO BID PRN muscle spasm #10 01/28/25 tabs famotidine 20 mg tablet (Pepcid) 20 mg PO BID 30 days #60 tabs 01/28/25 omeprazole 20 mg capsule,delayed 20 mg PO QDAY #30 caps 01/28/25 release tramadol 50 mg tablet 50 mg PO Q8H PRN pain #10 tabs 01/28/25 Allergies Allergy/AdvReac Type Severity Reaction Status Date / Time sumatriptan (From Imitrex) Allergy Palpitation Verified 01/28/25 20:12 s Review of Systems Review of Systems Systems Reviewed: All systems reviewed, normal except as documented Constitutional Constitutional: Reports system reviewed and no additional complaints, except as documented and Reports as per HPI Cardiovascular Cardiovascular: Reports system reviewed and no additional complaints, except as documented and Reports as per HPI Gastrointestinal Gastrointestinal: Reports system reviewed and no additional complaints, except as documented and Reports as per HPI Genitourinary Genitourinary: Reports system reviewed and no additional complaints, except as documented and Reports as per HPI Musculoskeletal Musculoskeletal: Reports system reviewed and no additional complaints, except as documented and Reports as per HPI Neurologic Neurologic: Reports system reviewed and no additional complaints, except as documented and Reports as per HPI Past Medical History Past Medical History NEUROLOGIC: Negative Neurological Disorders or Seizures CARDIAC: Negative Cardiac Disorders, Congestive Heart Failure, Edema, Cellulitis or Varicose Veins RESPIRATORY: Positive Asthma; Negative Chronic Obstructive Pulmonary Disease (COPD) GASTROINTESTINAL: Negative Gastrointestinal Disorders or Hepatitis GENITOURINARY: Negative Genitourinary Disorders or Renal Disease REPRODUCTIVE: Positive Previous Pregnancies MUSCULOSKELETAL: Negative Musculoskeletal Disorders ENDOCRINE: Negative Endocrine Disorders, Diabetes Mellitus Type 1 or Diabetes Mellitus Type 2 HEMATOLOGIC: Negative Blood Disorders or Anemia PSYCHO/SOCIAL: Positive Anxiety OTHER HISTORY: Positive Shingles and Chicken Pox; Negative Hospitalization, Autoimmune Disease, Falls, Blood Transfusions, Blood Transfusion Reaction, Anesthesia Reactions, Chemotherapy, Radiation Therapy, MRSA, Measles, Mumps or Cancer Family History FAMILY HISTORY: Positive Family Psychiatric Problems, Family Cardiac Disorders and Family Surgery; Negative Family Respiratory Disorders, Family Gastrointestinal Problems, Family Cancer or Family Anesthesia Reaction Surgical History SURGICAL: Negative Cardiac Surgery or Pacemaker Social History SMOKING STATUS: Never smoker ED Exam General Limitations: Present no limitations General appearance: Present alert, in no apparent distress and other (Patient is awake alert oriented not in distress nontoxic looking well-hydrated well nourished) Head Head exam: Present atraumatic, normocephalic and normal inspection Eye Eye exam: Present normal appearance, PERRL and EOMI ENT ENT exam: Present normal exam, normal oropharynx and mucous membranes moist Neck Neck exam: Present normal inspection, full ROM and trachea midline; Absent tenderness, meningismus, lymphadenopathy or thyromegaly Chest Chest inspection: Present normal inspection and symmetric chest wall rise; Absent tenderness Respiratory Respiratory exam: Present normal lung sounds bilaterally; Absent respiratory distress, wheezes, stridor, accessory muscle use or prolonged expiratory phase Cardiovascular Cardiovascular exam: Present regular rate, normal rhythm and normal heart sounds; Absent bradycardia, tachycardia, irregular rhythm, systolic murmur or diastolic murmur Abdominal Exam Abdominal exam: Present soft, tenderness (Mild tenderness on the left upper quadrant no CVA tenderness) and normal bowel sounds; Absent distention, guarding, rebound, rigidity, diminished bowel sounds, hyperactive bowel sounds, hypoactive bowel sounds, organomegaly, psoas sign, obturator sign, Tavares's sign, Rovsing's sign, tenderness at McBurney's Point or hernia Extremities Exam Extremities exam: Present normal inspection and full ROM Back Exam Back exam: Present normal inspection, full ROM, tenderness (Mild tenderness thoracic area) and muscle spasm; Absent CVA tenderness (R), CVA tenderness (L), paraspinal tenderness, vertebral tenderness, rashes, sciatic notch tenderness (R), sciatic notch tenderness (L), straight leg raise (R) or straight leg raise (L) Neurological Exam Neurological exam: Present alert, oriented X3, CN II-XII intact, normal gait and reflexes normal; Absent motor sensory deficit Psychiatric Psychiatric exam: Present normal affect and normal mood Skin Skin exam: Present warm, dry, intact, normal color and other (Excellent skin turgor) Course Quality Measures none Orders Category Date Time Status CT abdomen pelvis wo con Stat Exams 01/28/25 20:20 Completed CBC Stat Lab 01/28/25 20:36 Completed Comprehensive Metabolic Panel Stat Lab 01/28/25 20:36 Completed HCG Qualitative,Urine Stat Lab 01/28/25 20:42 Completed Lipase Stat Lab 01/28/25 20:36 Completed Urinalysis Stat Lab 01/28/25 20:42 Completed traMADol HCL [Ultram] Med 01/28/25 21:33 Discontinued 50 mg PO X1 ONE Vital Signs Vital signs: Vital Signs Temperature 97.9 F 01/28/25 20:16 Pulse Rate 80 01/28/25 20:16 Respiratory Rate 18 01/28/25 20:16 Blood Pressure 160/84 H 01/28/25 20:16 Pulse Oximetry (%) 99 01/28/25 20:16 Oxygen Delivery Method Room Air 01/28/25 20:16 Oxygen saturation is 99% in room Abdominal Pain MDM MDM Narrative MDM Narrative:: This is a case of 59-year-old female who came in in the emergency room due to left upper abdominal pain radiating to the mid back for 1 week associated with nausea vomiting patient denies any other symptoms denies any constipation diarrhea or blood in stool numbness weakness tingling sensation incontinence to urine or stool due to persistence of the symptoms this patient decided to start consult her in the emergency room physical examination patient is awake alert oriented not in distress nontoxic looking well-hydrated well-nourished excellent skin turgor abdominal exam noted mild tenderness on the left upper quadrant but no guarding no rebound no rigidity negative psoas negative straight or negative Rovsing's negative Laurel's negative Tavares sign negative CVA tenderness back exam noted mild tenderness on the thoracic area but no crepitation no deformity no redness no paraspinal tenderness no paravertebral tenderness leg raise exam is normal no CVA tenderness steady gait neurological exam is normal blood test showed no leukocytosis no anemia kidney liver function is normal no electrolyte imbalance lipase normal urinalysis normal CT scan normal except osteopenia based on a physical examination and history patient symptoms suggestive of gastritis and back muscle spasm patient will follow-up with PCP in 2 days for reevaluation and to 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 Patient verbalized no further complains explained diagnosis and answered patient question. Patient is comfortable with the proposed management plan including the need to follow up with his/her primary care physician and any specialist if applicable Discussed patient for any urgent condition or worsening sx, He/She needed to go to emergency room immediately or call 911. Patient acknowledge the responsibility to follow up as instructed and to monitor her/his symptoms. For any persistence of the symptoms for more than 3-5 days return precaution advised. Discussed the result of the test and was given printed discharge instruction Patient data External records reviewed:: [facility] previous records Clinical information provided by:: patient Social determinants that could affect healthcare access:: none Patient has the following chronic illnesses:: None How is presenting disease/condition affected by chronic disease/condition?: no chronic disease Evaluation data The following diagnostics were reviewed and interpreted by me:: lab results and radiology exam(s) Lab and/or radiology exams considered but not ordered:: None Interpretation Summary: None Medications / Prescriptions Medications or Prescriptions considered but not ordered:: Given Medication administrations:: Medication Administration History Discontinued Medications Tramadol HCl (Tramadol Hcl 50 Mg Tablet) 50 mg PO X1 ONE Stop: 01/28/25 21:34 Last Admin: 01/28/25 21:37 Dose: 50 mg Documented By: FARHAT Given Consultations Consultation(s) initiated? (list below): No Diagnosis Differential diagnosis abdominal pain: abdominal pain, acute appendicitis, calculus of kidney, constipation, diverticulitis, gastroenteritis, pancreatitis and small bowel obstruction Most likely diagnosis given after review of the tests above:: Gastritis Admission Indicated Admission indicated?: not indicated Explain why admission is indicated or not indicated:: Not indicated Admission Request Was there a request for admission?: No Admission Attestation Admission request attestation: Not indicated Disposition Plan Disposition Plan: Discharge Discharge Attestation Discharge Attestation: The patient and all family members were given an opportunity to ask questions and understood the discharge instructions. Discharge instructions specifically effects, indications for sooner follow up or return to the emergency department, and the expected course of current diagnosis. Patient condition: Stable Discharge Plan Plan Patient Disposition: HOME (Self Care) Patient condition on transfer: Stable Prescriptions/Referrals Prescriptions/Med Rec: New tramadol 50 mg tablet 50 mg PO Q8H MDD max 4 tabs per day PRN (Reason: pain) Qty: 10 0RF famotidine [Pepcid] 20 mg tablet 20 mg PO BID 30 Days Qty: 60 0RF baclofen 10 mg tablet 10 mg PO BID PRN (Reason: muscle spasm) Qty: 10 0RF omeprazole 20 mg capsule,delayed release(DR/EC) 20 mg PO QDAY Qty: 30 0RF No Action lorazepam 0.5 mg Tablet 0.25 mg PO BID PRN (Reason: Anxiety) alprazolam [Xanax] 0.5 mg tablet 0.5 mg PO BID PRN (Reason: anxiety) Qty: 10 0RF levalbuterol tartrate [Xopenex HFA] 45 mcg/actuation HFA aerosol inhaler 2 inh inhalation Q6H PRN (Reason: shortness of breath or wheezing) Qty: 15 0RF Referrals: CARROLL LORD [Primary Care Provider] - In 1 week Problem List Clinical Impression: Abdominal pain, Gastritis, Back muscle spasm, Osteopenia Patient/Caregiver Discharge Instructions Education Materials: Abdominal Pain, ED Back Spasm, No Trauma, ED Gastritis (Adult) Additional Instructions: Follow-up with your primary care physician in 2 days for reevaluation and to be referred to gastroenterology for further evaluation and treatment of gastritis for possible EGD and colonoscopy he also need to see a neurosurgeon for osteopenia and back muscle spasm for MRI to rule out herniated disc worsening symptoms or any emergent concerns such as numbness weakness tingling sensation incontinence to urine or stool call 911 or go to the nearest emergency room ice pack and warm compress as needed for pain avoid skipping of meals avoid fatty fried high cholesterol food avoid spicy food avoid alcohol soda coffee keep hydrated Print Language: Belarusian Stand Alone Forms: [employer] Award Info., Patient Portal Info Letter PA/TRANSPLANT REGISTERED NURSE Supervising Physician PA/TRANSPLANT REGISTERED NURSE Supervising Physician: dr farhad archer
== END 2025-01-28 21:40 | disposition home or self-care (01) ==
PROVIDERS: Nurse Practitioner Family; Emergency Provider Emergency Medicine; PCP Nurse Practitioner Family
DX: K29.70 Gastritis, unspecified, without bleeding (principal); M85.88 Other specified disorders of bone density and structure, other site; M62.830 Muscle spasm of back
CPT/HCPCS: 36415; 74176; 80053; 81001; 81025; 83690; 85025; 99283; A9270

== ENCOUNTER 2025-02-02 04:50 | Emergency (ER) | payer BC, SELFPAY ==
[2025-02-02 04:51] VITALS: BMI 24.8
--- NOTE | 2025-02-02 04:53 | EKG_ITS ---
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
[2025-02-02 05:05] VITALS: BP 128/90; PULSE 83; RESP 16; TEMP 36.8; O2SAT 98
--- NOTE | 2025-02-02 05:33 | XR_ITS ---
Examination: CT brain head without contrast. 2-D sagittal coronal reconstructions Date and time of exam: February 02, 2025, 0555 hours INDICATIONS: Weakness dizziness lightheadedness beginning today CTDI: vol (mGy): 43.0 DLP: (mGycm): 831 Technique: Multiple CT axial sections of the brain have been obtained, 5 mm slice thickness. Contrast has not been administered. 2-D sagittal, coronal reconstructions have been obtained Low dose protocols were performed. One or more of the following dose reduction techniques were used; automated exposure control, adjustment of the mA and/or KV according to patient size, use of iterative reconstruction technique. Findings: No significant ventricular enlargement. Intra-axial or extra-axial hemorrhage density is not seen. No mass effect or midline shift Basal cisterns are not remarkable. Fourth ventricle is midline. Cranial vault intact. The cerebellar tonsils, sagittal image 22 appears to project 4 mm below the foramen magnum Impression: Negative for acute hemorrhage, mass effect or midline shift Suspicious for Arnold-Chiari malformation type I, recommend elective brain MRI follow-up pre and postcontrast
--- NOTE | 2025-02-02 05:33 | XR_ITS ---
Upright PA chest film on 02/02/2025 comparison 03/05/2024 INDICATION: Several days of generalized weakness lightheadedness and cardiac palpitations FINDINGS: The heart and mediastinum appear normal. Both lungs are well expanded and clear. There is exceedingly minimal scoliosis of the dorsal spine unchanged in the prior film IMPRESSION: Normal chest
--- NOTE | 2025-02-02 05:34 | EDRME_ITS ---
Rapid Medical Screening Exam [facility] Arrival date/time: 02/02/25 04:50 59F with history of anxiety presents to ED with several days of generalized weakness, lightheadedness, and heart palps. Patient recently here multiple times for this. Patient takes Ativan at home. Chief Complaint: Weakness Vital signs: Vital Signs Temperature 98.3 F 02/02/25 05:05 Pulse Rate 83 02/02/25 05:05 Respiratory Rate 16 02/02/25 05:05 Blood Pressure 128/90 H 02/02/25 05:05 Pulse Oximetry (%) 98 02/02/25 05:05 Oxygen Delivery Method Room Air 02/02/25 05:05 Exam: Normal pupil response and EOM. CN II-XII grossly intact. Normal WOB. Strength equal bilaterally. Speech normal. Clinical Impression: anxiety vs CVA/TIA vs rhabdo vs anemia vs electrolyte abnormality
[2025-02-02 05:52] LABS: Collection Type, Urine Clean Catch; Squamous Epithelial Cell,Urine 0 /hpf (0-5); WBC,Urine 0 /hpf (0-5)
[2025-02-02 06:00] LABS: Bilirubin,Urine Negative (Negative); Blood,Urine Trace (Negative); Clarity,Urine Clear (Clear/Hazy); Color,Urine Lt-Yellow (Lt Yel-Yel); Culture Indicated,Urine Not Indicated; Glucose, Urine Negative (Negative); HCG Qualitative,Urine Negative; Ketones,Urine 1+ (Negative); Leukocyte Esterase,Urine Negative (Negative); Nitrite,Urine Negative (Negative); PH,Urine 7.5 (5.0-7.0); Protein,Urine Negative (Neg - Trace); RBC,Urine 2 /hpf (0-3); Specific Gravity,Urine 1.016 (1.001-1.035); Urobilinogen,Urine Negative mg/dL (0.0-1.0)
[2025-02-02 06:06] LABS: Amphetamine/Methamp Scrn,U Negative (Negative); Barbiturate Screen,Urine Negative (Negative); Benzodiazepines Screen,Urine Negative (Negative); Benzoylecgonine Screen, Ur Negative (Negative); Fentanyl Screen,Urine Negative (Negative); Opiate Screen,Urine Negative (Negative); THC Screen,Urine Negative (Negative)
[2025-02-02 06:16] LABS: Basophils # (Auto) 0.0 Thou/mm3 (0.0-0.2); Basophils % (Auto) 1 % (0-2.5); Eosinophils # (Auto) 0.1 Thou/mm3 (0.0-0.5); Eosinophils % (Auto) 1 % (0-10); Hematocrit 42.9 % (36.0-46.0); Hemoglobin 15.0 g/dL (12.0-16.0); Immature Granulocytes Auto 0.01 Thou/mm3 (0.00-0.00); Lymphocytes # (Auto) 1.8 Thou/mm3 (1.0-4.8); Lymphocytes % (Auto) 35 % (10-50); Mean Corpuscular HGB Conc 35.0 g/dl (31.0-37.0); Mean Corpuscular Hemoglobin 31.4 pg (25.0-35.0); Mean Corpuscular Volume 90 fL (80-100); Monocytes # (Auto) 0.5 Thou/mm3 (0.0-0.8); Monocytes % (Auto) 9 % (0-12); Neutrophils # (Auto) 2.8 Thou/mm3 (1.8-7.7); Neutrophils % (Auto) 55 % (37-80); Nucleated Red Blood Cell # 0.00 Thou/mm3 (0.00-0.00); Nucleated Red Blood Cell % 0 /100 WBC (0); Platelet Count 206 Thou/mm3 (140-440); RDW Standard Deviation 37.7 fL (36.4-46.3); Red Blood Count 4.78 Miln/mm3 (4.00-5.20); White Blood Count 5.2 Thou/mm3 (3.6-11.0)
[2025-02-02 06:42] LABS: Alanine Aminotransferase 15 U/L (10-49); Albumin, Serum 4.9 gm/dL (3.5-5.0); Albumin/Globulin Ratio 1.6 (1.2-2.2); Alkaline Phosphatase 85 U/L (46-116); Anion Gap 11 (7-16); Aspartate Amino Transferase 18 U/L (0-34); BUN/Creatinine Ratio 16 Ratio (12-20); Bilirubin,Total 0.8 mg/dL (0.3-1.2); Blood Urea Nitrogen 16 mg/dL (9-23); Calcium 9.9 mg/dL (8.3-10.6); Calcium (Corrected) 9.9 mg/dL (8.5-10.1); Carbon Dioxide 27.9 mMol/L (20.0-31.0); Chloride 103 mMol/L (98-107); Creatine Kinase 46 U/L (34-171); Creatinine (Component) 1.0 mg/dL (0.6-1.3); Estimated Creatinine Clearance 46.7 mL/min (>60); Globulin 3.1 gm/dL (2.3-3.5); Glucose 98 mg/dL (74-106); Magnesium 1.8 mg/dL (1.6-2.6); Osmolality,Calculated 284 (275-295); Potassium 3.9 mMol/L (3.4-5.1); Sodium 142 mMol/L (136-145); Thyroid Stimulating Hormone 1.22 uIU/mL (0.55-4.78); Total Protein 8.0 gm/dL (5.7-8.2); Troponin I < 0.002 ng/mL (0.0-0.045); eGFR > 60 See Note
--- NOTE | 2025-02-02 07:42 | PD.EDADULT ---
ED General RME/HPI General Chief complaint: Weakness Stated complaint: LIGHTHEADED AND WEAK Time Seen by Provider: 02/02/25 07:37 Arrival date/time: 02/02/25 04:50 RME / HPI RME / HPI narrative: 02/02/25 04:50 59F with history of anxiety presents to ED with several days of generalized weakness, lightheadedness, and heart palps. Patient recently here multiple times for this. Patient takes Ativan at home. 02/02/25 07:30 59-year-old female with a past medical history of generalized anxiety, vertigo which she follows with her neurologist Dr. Jacobson who prescribes her alprazolam for this, gastritis, who presents to the ER complaining of generalized weakness, lightheadedness, vertigo, chest pain, headache, palpitations which has been relatively constant for the past 4 days and gets worse for seconds at a time especially with quick head movements however this is otherwise non exertional and not worse with walking. Patient states she has been taking her Xanax with minimal relief and believes after being prescribed Pepcid by her primary care doctor when she saw her 5 days ago for her gastritis her symptoms have worsened. Patient denies any syncope, shortness of breath, focal weakness, vision changes, numbness, speech changes, nausea vomiting, fever. Exam: Normal pupil response and EOM. CN II-XII grossly intact. Normal WOB. Strength equal bilaterally. Speech normal. Impression: anxiety vs CVA/TIA vs rhabdo vs anemia vs electrolyte abnormality Related Data Home Medications ?Medication ?Instructions ?Recorded ?Confirmed lorazepam 0.5 mg tablet 0.25 mg PO BID PRN Anxiety 08/16/20 08/07/23 Held on 08/07/23. Instructions: Resume on 08/08/23. Previous Rx's ?Medication ?Instructions ?Recorded alprazolam 0.5 mg tablet (Xanax) 0.5 mg PO BID PRN anxiety #10 tabs 03/05/24 levalbuterol tartrate 45 2 inh inhalation Q6H PRN shortness 03/05/24 mcg/actuation aerosol inhaler of breath or wheezing #15 grams (Xopenex HFA) baclofen 10 mg tablet 10 mg PO BID PRN muscle spasm #10 01/28/25 tabs famotidine 20 mg tablet (Pepcid) 20 mg PO BID 30 days #60 tabs 01/28/25 omeprazole 20 mg capsule,delayed 20 mg PO QDAY #30 caps 01/28/25 release tramadol 50 mg tablet 50 mg PO Q8H PRN pain #10 tabs 01/28/25 Allergies Allergy/AdvReac Type Severity Reaction Status Date / Time sumatriptan (From Imitrex) Allergy Palpitation Verified 01/28/25 20:12 s ED Exam Narrative Physical exam: Constitutional: Patient alert and oriented. Well appearing. No acute distress. Not toxic appearing. Mildly anxious appearing. Head: Normocephalic, atraumatic. Eyes: Periorbital regions bilaterally normal to inspection. Conjunctiva clear bilaterally. Sclera anicteric bilaterally. Pupils equal, round, reactive to light bilaterally. Extraocular movements intact bilaterally. Mouth/Throat: Mucous membranes moist. No stridor or muffled voice. No trismus. Handling secretions without difficulty. Airway widely patent. Neck: Supple. Trachea midline. No JVD. No nuchal rigidity. Normal range of motion. Respiratory: Normal effort. No accessory muscle use or respiratory distress. Lungs clear to auscultation bilaterally without rhonchi, wheezes, or crackles. Cardiovascular: RRR. Normal S1/S2. No murmurs or rubs. Radial pulses intact bilaterally. Abdomen: Soft. Non-distended. Non-tender throughout. No pulsatile mass. No guarding or rebound. Negative Tavares?s sign. Negative McBurney?s point tenderness. Negative Rovsing?s. Back: No midline tenderness or step-offs. No CVA tenderness to palpation bilaterally. Upper Extremities: No gross deformities. Strength 5 out of 5 for upper extremities bilaterally Lower Extremities: No gross deformities. No edema or calf tenderness. Strength 5 out of 5 for lower extremities bilaterally Neuro: Speech normal. No gross motor or sensory deficits to upper or lower extremities bilaterally. GCS 15. CN II?XII grossly intact. Cerebellar: [id number] testing normal. Rapid alternating movements intact. Normal gait observed. Romberg negative. Skin: Warm, dry, normal color. Psych: Normal affect. Cooperative. Normal insight. Course Quality Measures none Orders Category Date Time Status EKG (ED ONLY) *Do not use* NOW Care 02/02/25 04:53 Completed Consult to Neurology / Tele-Neurology Stat Cons 02/02/25 08:[address] head/brain wo con Stat Exams 02/02/25 05:33 Completed EKG (ED Only) Stat Exams 02/02/25 04:53 Draft XR chest 1V portable Stat Exams 02/02/25 05:33 Completed CBC Stat Lab 02/02/25 06:03 Completed Comprehensive Metabolic Panel Stat Lab 02/02/25 06:03 Completed Creatine Kinase Stat Lab 02/02/25 06:03 Completed Drug Screen,Urine Stat Lab 02/02/25 05:45 Completed HCG Qualitative,Urine Stat Lab 02/02/25 05:45 Completed Magnesium Stat Lab 02/02/25 06:03 Completed TSH [Thyroid Stimulating Hormone] Stat Lab 02/02/25 06:03 Completed Troponin I Stat Lab 02/02/25 06:03 Completed Troponin I Stat Lab 02/02/25 09:05 Completed Urinalysis, C/S if Indicated Stat Lab 02/02/25 05:45 Completed LORazepam [Ativan] Med 02/02/25 09:22 Discontinued 0.5 mg PO X1 ONE Vital Signs Vital signs: Vital Signs Temperature 98.3 F 02/02/25 05:05 Pulse Rate 83 02/02/25 05:05 Respiratory Rate 16 02/02/25 05:05 Blood Pressure 128/90 H 02/02/25 05:05 Pulse Oximetry (%) 98 02/02/25 05:05 Oxygen Delivery Method Room Air 02/02/25 05:05 Discharge Plan Plan Patient Disposition: HOME (Self Care) Patient condition on transfer: Stable Prescriptions/Referrals Prescriptions/Med Rec: No Action lorazepam 0.5 mg Tablet 0.25 mg PO BID PRN (Reason: Anxiety) tramadol 50 mg tablet 50 mg PO Q8H MDD max 4 tabs per day PRN (Reason: pain) Qty: 10 0RF famotidine [Pepcid] 20 mg tablet 20 mg PO BID 30 Days Qty: 60 0RF baclofen 10 mg tablet 10 mg PO BID PRN (Reason: muscle spasm) Qty: 10 0RF omeprazole 20 mg capsule,delayed release(DR/EC) 20 mg PO QDAY Qty: 30 0RF alprazolam [Xanax] 0.5 mg tablet 0.5 mg PO BID PRN (Reason: anxiety) Qty: 10 0RF levalbuterol tartrate [Xopenex HFA] 45 mcg/actuation HFA aerosol inhaler 2 inh inhalation Q6H PRN (Reason: shortness of breath or wheezing) Qty: 15 0RF Referrals: Sadi Malone MD [Physician, Cardiology] - In 1 week CARROLL LORD [Primary Care Provider] - In 1 week Problem List Clinical Impression: Heart palpitations, Vertigo, Anxiety Patient/Caregiver Discharge Instructions Additional Instructions: Follow up with your primary medical doctor within 24 hours. Return to the Emergency Room immediately for any new, worsening, continuing symptoms or any concerns at all. Return to the Emergency Room within 24 hours if you are unable to follow up with your primary medical doctor within 24 hours. Follow-up with a associate professor of art history Dr. Malone today to help arrange for follow up on Thursday the latest for [facility]. Follow-up with your neurologist this coming week as well for your vertigo as you will likely need an MRI outpatient. Print Language: Vietnamese Stand Alone Forms: [employer] Award Info., Patient Portal Info Letter PA/UTILIZATION SPECIALIST Supervising Physician PA/UTILIZATION SPECIALIST Supervising Physician: Dr. Dunbar MDM Narrative [facility] hospital course (for use when minimal MDM required): MDM Suspect: Near syncope, palpitations, vertigo, intermittent chest pain Non-cardiovascular causes: Reflex mechanisms (vasovagal, vasodepressor/neurocardiogenic syncope), situational (micturition, deglutition, cough). Vs Psychogenic causes: Anxiety, panic disorder, hysterical/functional (cannot be excluded). Vs Orthostatic hypotension: Considered (dysautonomias, fluid depletion, illness, bedrest, deconditioning). Doubt significant orthostasis based on HPI and exam, though mild fluid depletion cannot be ruled out ? patient is safe for oral hydration. Low suspicion for below: Seizure: Undiagnosed seizure considered but doubted given lack of seizure history and absence of other seizure symptoms (tongue bite, postictal state, tonic-clonic activity). Drug-induced: Considered (alcohol, illicit drugs, prescribed medications), but doubted given negative history and presentation. Cardiovascular causes: Arrhythmic and nonarrhythmic etiologies (structural cardiac disease, valvular disease, ischemia) considered. Doubt due to lack of risk factors, normal exam, reassuring EKG, and overall benign clinical presentation. Additionally I have low suspicion for the following etiologies including: PE: Wells low risk and no pleuritic CP ACS: HEART Score low risk 2, suggesting low probability of major adverse cardiac event in the next 6 weeks. Aortic Dissection: Unlikely given palpable pulses, warm extremities bilaterally, and no radiation of pain. Tamponade: Unlikely given absence of hypotension, muffled heart sounds, JVD, friction rub, narrow pulse pressure <30, low-voltage EKG, or enlarged cardiac silhouette. Endocarditis: Unlikely as no Vieyra criteria present (Perla spots, splinter hemorrhages, Osler nodes). CHF: Unlikely given no JVD, peripheral edema, or orthopnea. The patient is clinically well-appearing and stable. Evaluation today does not suggest cardiac ischemia, pulmonary embolism, aortic dissection, or other life-threatening etiology. These diagnoses were considered and excluded clinically and with appropriate studies. Nonetheless, it is understood by both patient and provider that no evaluation can entirely exclude such conditions. Patient's vertigo is likely of peripheral etiology and she is currently being followed by a neurologist for this whom I consulted and is happy to follow-up with her outpatient and no indication for further emergent workup at this time Neuro-exam remains non-focal HINTS exam is negative for central pathology I additionally consulted cardiology who is agreeable to follow-up with this patient outpatient for mobile outpatient cardiac telemetry and patient to call office today to schedule Course/Disposition: This patient is clinically well appearing. Patient improved after Ativan. Careful history, physical exam, and ED testing show no signs of a serious cause of lightheadedness such as arrhythmia, anemia, seizure, serious neurologic, or structural cardiovascular disease. Admission was considered; however, given the negative evaluation in the ED and stable presentation, admission is unlikely to provide additional benefit or identify a serious etiology at this time. The patient is safe for home observation, oral hydration encouraged, and strict ER return precautions were discussed. Close follow-up with primary physician is recommended. Clinical Information Other: CBC with immature granulocyte number minimally elevated 0.01 thousand troponin undetectable at less than 0.002 ng x 2, CK within normal limits at 46 TSH within normal limits at 1.22 and remainder of CBC, CMP unremarkable along with mag and tox screen UA is notable for ketones however no signs of infection and otherwise no severe metabolic or electrolyte abnormality Chest x-ray without acute cardiopulmonary abnormality EKG without acute ischemia or arrhythmia CT brain notable for possible Arnold-Chiari malformation type I, recommend elective brain MRI follow-up pre and postcontrast Labs Lab(s) Interpretation(s): 02/02/2025 at 5:17 AM EKG was performed which noted 76 normal sinus rhythm with subtle nonspecific ST abnormalities which are not observed on prior EKG about a month ago however no ST elevation or T wave inversions Medication Administration(s) Medication Administration History Discontinued Medications Lorazepam (Lorazepam 0.5 Mg Tablet) 0.5 mg PO X1 ONE Stop: 02/02/25 09:23 Last Admin: 02/02/25 09:53 Dose: 0.5 mg Documented By: Consultations/Discussions re: Management Consult #1: Date/time: 02/02/25 8:57 am Physician, specialty, service, details: Neurology, Dr. Villar, who is happy to f/u with pt OP from neurology stand point after discussion of case and plan we are in agreement no emergent further w/u is indicated at this time and pt safe for OP f/u Consult #2: Date/time: 02/02/25 9:10 am Physician, specialty, service, details: Cardiology, Dr. Malone, agreeable to follow-up with the patient in the office to arrange for outpatient cardiac monitoring and cardiac evaluation
[2025-02-02 07:59] VITALS: BP 120/75; PULSE 75; RESP 17; TEMP 36.8; O2SAT 98
[2025-02-02 09:49] LABS: Troponin I < 0.002 ng/mL (0.0-0.045)
[2025-02-02 09:54] VITALS: BP 135/84; PULSE 66; RESP 16; TEMP 36.6; O2SAT 98
== END 2025-02-02 10:32 | disposition home or self-care (01) ==
PROVIDERS: Physician Assistant; Emergency Provider Physician Assistant; PCP Nurse Practitioner Family
DX: F41.9 Anxiety disorder, unspecified (principal); R53.1 Weakness; R00.2 Palpitations; R42 Dizziness and giddiness
CPT/HCPCS: 36415; 70450; 71045; 80053; 80307; 81001; 81025; 82550; 83735; 84443; 84484; 85025; 93005; 99283; A9270